=== PATIENT | female | born 1955 | race Two or more races ===

== ENCOUNTER 2016-11-24 12:49 | Emergency (ER) | payer BC, MEDICAID ==
[~2016-11-24] VITALS: Ht 165.1 cm; Wt 68.5 kg
[2016-11-24] MEDS ORDERED: LISINOPRIL (12:58)
[2016-11-24] MEDS ORDERED: CARBAMAZEPINE (12:58)
[2016-11-24] MEDS ORDERED: GABAPENTIN (12:58)
[2016-11-24] MEDS ORDERED: SODIUM CHLORIDE 0.9% 1,000 ML IV ONE ×2 (14:30)
[2016-11-24] MEDS ORDERED: KETOROLAC 15MG/ML VIAL IV ONE (14:30)
[2016-11-24] MEDS ORDERED: ONDANSETRON HCL 4MG/2ML VIAL IV ONE (14:30)
[2016-11-24] MEDS ORDERED: LORAZEPAM 2MG/ML CPJ IV ONE (14:30)
[2016-11-24] MEDS ORDERED: MORPHINE SULFATE 4 MG/ML CPJ (NOT FOR IM USE) IV ONE (14:30)
[2016-11-24 14:35] LABS: HEMATOCRIT. 37.6 % (36.0-48.0); HEMOGLOBIN. 12.7 g/dL (12.0-16.0); MEAN CORPUSCULAR HEMOGLOBIN 32.9 pg (28.0-32.0); MEAN CORPUSCULAR HGB CONC 33.8 g/dL (31.0-37.0); MEAN CORPUSCULAR VOLUME 97.2 fL (81.0-99.0); MEAN PLATELET VOLUME 8.2 fl (7.4-10.4); PLATELET 251 x1000/uL (130-400); RED BLOOD CELL COUNT 3.88 mill/uL (4.2-5.4); RED CELL DISTRIBUTION WIDTH 14.3 % (11.6-14.6); WHITE BLOOD COUNT 5.7 x1000/uL (4.5-11.0)
[2016-11-24 14:36] LABS: DIFFERENTIAL COMMENT 1
[2016-11-24 14:37] LABS: CHLORIDE 104 mEq/L (98-107); INDEX HEMOLYSI 1 (1-3); INDEX ICTERIC 1 (1-4); INDEX LIPEMIC 1 (1-3)
[2016-11-24 14:41] LABS: ALBUMIN 3.2 g/dL (3.4-5.0); ANION GAP 12; CALCIUM 8.3 mg/dL (8.5-10.1); CARBON DIOXIDE 29 mEq/L (21-32)
[2016-11-24 14:47] LABS: ALANINE AMINOTRANSFERASE 17 IU/L (13-61); UREA NITROGEN BLOOD 11 mg/dL (7-21); eGFR > 60 mL/min (>60)
[2016-11-24 15:35] LABS: PLATELET ESTIMATE NORMAL
[2016-11-24] MEDS ORDERED: POTASSIUM CHLORIDE 20MEQ TABLET SR PO ONE (16:00)
[2016-11-24 17:32] VITALS: BP 139/87
== END 2016-11-24 18:41 | disposition home or self-care (01) ==
LOC: ER 12:57
DX: G50.0 Trigeminal neuralgia (principal); I10 Essential (primary) hypertension; G35 Multiple sclerosis
CPT/HCPCS: 36415; 80053; 85025; 96361; 96374; 96375; 99284; J1885; J2060; J2270; J2405; Z7610; J7030